=== PATIENT | male | born 1950 | race Caucasian/White ===

== ENCOUNTER → 2021-05-19 08:15 | Outpatient (CLI) | payer OTHER, SELFPAY ==
--- NOTE | 2021-05-19 09:16 | NEURO ---
NCS and/or EMG Patient Report Ordering Doctor: Wing Doyle DATE OF SERVICE: 05/19/21 Indication: Constant aching of the right wrist with intermittent numbness and tingling in the fingers. Symptoms are prominent when awakening from sleep. Evaluate for median neuropathy at the wrist. Findings: Nerve conduction studies were performed in the right upper extremity. The right median motor study recording the abductor pollicis brevis showed a borderline normal amplitude, prolonged distal latency and slowed conduction velocity. The right ulnar motor study recording the abductor digiti minimi showed a normal amplitude, normal distal latency and normal conduction velocity. No conduction block or focal slowing was present across the elbow. The right median sensory response recording digit two showed a reduced amplitude, prolonged latency and markedly slowed conduction velocity. The right ulnar sensory response recording digit five showed a normal amplitude, latency and conduction velocity. The right radial sensory response recording over the extensor snuff box showed a normal amplitude, latency and conduction velocity. Right median-ulnar lumbrical / interosseous motor latencies showed a prolonged median latency compared to the ulnar. Needle EMG of the right upper extremity and cervical paraspinal muscles was performed. No denervation was seen in any muscle. Motor units in the right abductor pollicis brevis were mildly polyphasic, but otherwise unremarkable. All other examined muscles revealed normal motor unit morphology, activation and recruitment patterns. Impression: This is an abnormal study. There is electrophysiologic evidence of median neuropathy across the right wrist. The pathophysiology is primarily demyelination, though there is evidence of secondary sensory axon loss. These findings are compatible with the clinical diagnosis of carpal tunnel syndrome. In addition, there is no electrophysiologic evidence of a superimposed cervical radiculopathy in the right upper extremity. Aftab Brewer D.O. Multi Select Codes Neurology Neurology Interp Codes: 46984-31 Musc test done w/n test comp (interp) and 19714-70 Nrv cndj test 7-8 studies (interp)
== END ==
PROVIDERS: PCP Family Medicine; Referring Provider Student in an Organized Health Care Education/Training Program; Visit Provider Student in an Organized Health Care Education/Training Program
DX: G56.01 Carpal tunnel syndrome, right upper limb (principal)
CPT/HCPCS: 95886; 95910